=== PATIENT | male | born 1985 | race Caucasian/White ===

== ENCOUNTER 2017-04-20 20:31 | Emergency (ER) | payer SELFPAY ==
[~2017-04-20] VITALS: Ht 167.6 cm; Wt 77.0 kg
[2017-04-20 21:21] LABS: MCH 28.9 PG (29.0-34.0); MEAN PLAT.VOLUME 10.2 uM^3 (9.0-12.4); PLATELET COUNT 320 K/uL (156-360); RBC DIS.WIDTH-CV 13.1 % (11.8-14.6); RBC DIS.WIDTH-SD 40.4 % (39-53); RED BLOOD COUNT 4.94 M/uL (4.00-5.50); WHITE BLOOD COUNT 12.6 K/uL (4.1-10.2)
[2017-04-20 21:39] LABS: CHLORIDE 106 mEq/L (99-109); POTASSIUM 3.4 mEq/L (3.7-5.4); SODIUM 139 mEq/L (136-147)
[2017-04-20 21:40] LABS: MAGNESIUM 2.3 mg/dL (1.3-2.7)
[2017-04-20 21:41] LABS: GLUCOSE 139 mg/dL (70-99)
[2017-04-20 21:42] LABS: ANION GAP 6 MEQ/L (2-14)
[2017-04-20 21:43] LABS: TOTAL BILIRUBIN 0.5 mg/dL (0.0-1.0)
[2017-04-20 21:44] LABS: SERUM ETHYL ALCOHOL < 10 mg/dL
[2017-04-20 21:46] LABS: ALKALINE PHOSPHATASE 70 IU/L (3-129)
[2017-04-20 21:47] LABS: UREA NITROGEN (BUN) 14 mg/dL (9-23)
[2017-04-20 21:48] LABS: SALICYLATE < 5.0 MG/DL (15-30)
[2017-04-20 21:52] LABS: GFR ESTIMATE (CALCULATED) > 59 mL/min/
[2017-04-20 22:29] VITALS: BP 126/80
== END 2017-04-20 22:31 | disposition home or self-care (01) ==
LOC: EME 20:31
PROVIDERS: Emergency Medicine
DX: F20.9 Schizophrenia, unspecified (principal); F17.200 Nicotine dependence, unspecified, uncomplicated; Z88.8 Allergy status to other drugs, medicaments and biological substances
CPT/HCPCS: 80053; 81003; 83735; 85027; 90839; 99281; 99283; G0480

== ENCOUNTER 2017-04-21 02:33 | Emergency (ER) | payer OTHER ==
[~2017-04-21] VITALS: Ht 167.6 cm; Wt 77.0 kg
[2017-04-21 04:32] VITALS: BP 120/68
== END 2017-04-21 04:36 | disposition home or self-care (01) ==
LOC: EME 02:33
DX: R53.83 Other fatigue (principal); Z59.0 Homelessness; F20.9 Schizophrenia, unspecified; F17.200 Nicotine dependence, unspecified, uncomplicated
CPT/HCPCS: 82550; 99281; 99283